=== PATIENT | female | born 1935 | race Caucasian/White ===

== ENCOUNTER 2018-03-31 20:18 | Inpatient (IN) | payer MEDICARE ==
--- NOTE | 2018-03-31 20:34 | ED ---
General Adult HPI - General Chief complaint: Altered Mental Status Stated complaint: Confusion Time Seen by Provider: 03/31/18 20:20 Source: patient, EMS, RN notes reviewed Mode of arrival: EMS Limitations: altered mental status - History of Present Illness Initial comments: Patient is a pleasant 82-year-old female presenting to the emergency department with change in mental status. EMS reports that family stated patient had what appeared to be seizure-like activity lasting a couple of minutes. Patient then has been altered. EMS states when they arrived patient was very altered and only could speak around 1 word. Patient at this time is alert and able to answer some simple questions. Patient denies any complaints. No reported seizure history. - Related Data Home Medications Medication Instructions Recorded Confirmed Albuterol Inhaler [Ventolin Hfa 1 - 2 puff INHALATION RT-Q6H PRN 03/31/18 Inhaler] Allopurinol [Zyloprim] 300 mg PO DAILY 03/31/18 03/31/18 Atorvastatin [Lipitor] 80 mg PO HS 03/31/18 03/31/18 Blood Pressure Med(Unknown) 1 tab PO DIRECTED 03/31/18 03/31/18 Furosemide [Lasix] 40 mg PO BID 03/31/18 03/31/18 HYDROcodone/APAP 5-325MG [[place] 1 tab PO BID PRN 03/31/18 03/31/18 5-325] Insulin Aspart Protam & Aspart 40 unit SQ QAM 03/31/18 03/31/18 [NovoLOG MIX 70-30 Flexpen] Insulin Aspart Protam & Aspart 60 unit SQ HS 03/31/18 03/31/18 [NovoLOG MIX 70-30 Flexpen] Nitroglycerin Sl Tabs [Nitrostat] 0.4 mg SUBLINGUAL Q5M PRN 03/31/18 03/31/18 Omeprazole [PriLOSEC] 20 mg PO DAILY 03/31/18 03/31/18 Allergies Allergy/AdvReac Type Severity Reaction Status Date / Time No Known Allergies Allergy Verified 03/31/18 20:58 Review of Systems ROS Statement: Those systems with pertinent positive or pertinent negative responses have been documented in the HPI. ROS Other: All systems not noted in ROS Statement are negative. Constitutional: Denies: fever Eyes: Denies: eye pain ENT: Denies: ear pain Respiratory: Denies: cough, dyspnea Cardiovascular: Denies: chest pain Endocrine: Denies: fatigue Gastrointestinal: Denies: abdominal pain Genitourinary: Denies: dysuria Musculoskeletal: Denies: back pain Skin: Denies: rash Neurological: Denies: headache, weakness Past Medical History Past Medical History: Unable to Obtain History of Any Multi-Drug Resistant Organisms: None Reported Past Surgical History: Unable to Obtain Past Psychological History: No Psychological Hx Reported Smoking Status: Never smoker Past Alcohol Use History: None Reported Past Drug Use History: None Reported General Exam Limitations: no limitations General appearance: alert, in no apparent distress Head exam: Present: atraumatic Eye exam: Present: normal appearance, PERRL, EOMI ENT exam: Present: normal oropharynx Neck exam: Present: normal inspection. Absent: meningismus Respiratory exam: Present: normal lung sounds bilaterally Cardiovascular Exam: Present: regular rate, normal rhythm GI/Abdominal exam: Present: soft. Absent: tenderness Extremities exam: Present: normal inspection Neurological exam: Present: alert, altered, CN II-XII intact Expanded Neurological exam: Present: protecting the airway Patient oriented to: Present: person, place. Absent: time Cranial nerves: EOM's Intact: Normal, Facial Sensation: Normal Sensory exam: Upper Extremity Light Touch: Normal, Lower Extremity Light Touch: Normal Motor strength exam: RUE: 4, LUE: 4, RLE: 3, LLE: 3 Eye Response: (4) open spontaneously Motor Response: (6) obeys commands Verbal Response: (4) confused conversation Psychiatric exam: Present: normal affect, normal mood Skin exam: Present: normal color Course Vital Signs 03/31/18 03/31/18 03/31/18 20:20 21:26 21:42 Temperature 100 F H Pulse Rate 76 73 78 Respiratory 20 18 18 Rate Blood Pressure 143/82 114/74 83/40 O2 Sat by Pulse 100 97 97 Oximetry 03/31/18 22:00 Temperature Pulse Rate 77 Respiratory 20 Rate Blood Pressure 123/58 O2 Sat by Pulse 97 Oximetry - Reevaluation(s) Reevaluation #1: 03/31/18 22:13 There is concern for urinary tract infection however patient does not meet sepsis criteria. EKG Findings - EKG Comments: EKG Findings:: Normal sinus rhythm 79. MN 160. QRS 78. QT 348. QTC 399. Left axis. Low QRS voltage. Poor R-wave progression. No acute ST change. Medical Decision Making - Medical Decision Making Patient reevaluated and resting comfortably in bed. Patient is alert and appropriate. Family states patient is at baseline. Patient and family updated on results and plan. Case was discussed in detail with Dr. Woody, who will admit his patient, no consults at this time. - Lab Data Result diagrams: 03/31/18 20:30 03/31/18 20:30 Lab Results 03/31/18 03/31/18 03/31/18 Range/Units 20:30 20:30 20:30 WBC 7.8 (3.8-10.6) k/uL RBC 4.51 (3.80-5.40) m/uL Hgb 12.8 (11.4-16.0) gm/dL Hct 40.1 (34.0-46.0) % MCV 89.0 (80.0-100.0) fL MCH 28.3 (25.0-35.0) pg MCHC 31.8 (31.0-37.0) g/dL RDW 14.7 (11.5-15.5) % Plt Count 155 (150-450) k/uL Neutrophils % 70 % Lymphocytes % 18 % Monocytes % 6 % Eosinophils % 4 % Basophils % 1 % Neutrophils # 5.5 (1.3-7.7) k/uL Lymphocytes # 1.4 (1.0-4.8) k/uL Monocytes # 0.5 (0-1.0) k/uL Eosinophils # 0.3 (0-0.7) k/uL Basophils # 0.0 (0-0.2) k/uL PT (9.0-12.0) sec INR (<1.2) APTT (22.0-30.0) sec Sodium 137 (137-145) mmol/L Potassium 4.0 (3.5-5.1) mmol/L Chloride 103 (98-107) mmol/L Carbon Dioxide 27 (22-30) mmol/L Anion Gap 7 mmol/L BUN 18 H (7-17) mg/dL Creatinine 0.75 (0.52-1.04) mg/dL Est GFR (CKD-EPI)AfAm 85 (>60 ml/min/1.73 sqM) Est GFR (CKD-EPI)NonAf 74 (>60 ml/min/1.73 sqM) Glucose 56 L (74-99) mg/dL POC Glucose (mg/dL) (75-99) mg/dL POC Glu Hospice Patient Care Secretary ID Calcium 8.2 L (8.4-10.2) mg/dL Magnesium 1.8 (1.6-2.3) mg/dL Total Bilirubin 0.5 (0.2-1.3) mg/dL AST 23 (14-36) U/L ALT 25 (9-52) U/L Alkaline Phosphatase 77 (38-126) U/L Total Creatine Kinase 61 (30-135) U/L CK-MB (CK-2) 1.0 (0.0-2.4) ng/mL CK-MB (CK-2) Rel Index 1.6 Troponin I <0.012 (0.000-0.034) ng/mL Total Protein 5.1 L (6.3-8.2) g/dL Albumin 2.7 L (3.5-5.0) g/dL Urine Color Urine Appearance (Clear) Urine pH (5.0-8.0) Ur Specific [place] (1.001-1.035) Urine Protein (Negative) Urine Glucose (UA) (Negative) Urine Ketones (Negative) Urine Blood (Negative) Urine Nitrite (Negative) Urine Bilirubin (Negative) Urine Urobilinogen (<2.0) mg/dL Ur Leukocyte Esterase (Negative) Urine RBC (0-5) /hpf Urine WBC (0-5) /hpf Urine WBC Clumps (None) /hpf Ur Squamous Epith Cells (0-4) /hpf Urine Bacteria (None) /hpf Urine Mucus (None) /hpf Urine Yeast (Budding) (None) /hpf Urine Opiates Screen (NotDetected) Ur Oxycodone Screen (NotDetected) Urine Methadone Screen (NotDetected) Ur Propoxyphene Screen (NotDetected) Ur Barbiturates Screen (NotDetected) U Tricyclic Antidepress (NotDetected) Ur Phencyclidine Scrn (NotDetected) Ur Amphetamines Screen (NotDetected) U Methamphetamines Scrn (NotDetected) U Benzodiazepines Scrn (NotDetected) Urine Cocaine Screen (NotDetected) U Marijuana (THC) Screen (NotDetected) 03/31/18 03/31/18 03/31/18 Range/Units 20:30 20:39 21:11 WBC (3.8-10.6) k/uL RBC (3.80-5.40) m/uL Hgb (11.4-16.0) gm/dL Hct (34.0-46.0) % MCV (80.0-100.0) fL MCH (25.0-35.0) pg MCHC (31.0-37.0) g/dL RDW (11.5-15.5) % Plt Count (150-450) k/uL Neutrophils % % Lymphocytes % % Monocytes % % Eosinophils % % Basophils % % Neutrophils # (1.3-7.7) k/uL Lymphocytes # (1.0-4.8) k/uL Monocytes # (0-1.0) k/uL Eosinophils # (0-0.7) k/uL Basophils # (0-0.2) k/uL PT 10.7 (9.0-12.0) sec INR 1.1 (<1.2) APTT 36.5 H (22.0-30.0) sec Sodium (137-145) mmol/L Potassium (3.5-5.1) mmol/L Chloride (98-107) mmol/L Carbon Dioxide (22-30) mmol/L Anion Gap mmol/L BUN (7-17) mg/dL Creatinine (0.52-1.04) mg/dL Est GFR (CKD-EPI)AfAm (>60 ml/min/1.73 sqM) Est GFR (CKD-EPI)NonAf (>60 ml/min/1.73 sqM) Glucose (74-99) mg/dL POC Glucose (mg/dL) 54 L (75-99) mg/dL POC Glu Hospice Patient Care Secretary ID Malu Garcia Calcium (8.4-10.2) mg/dL Magnesium (1.6-2.3) mg/dL Total Bilirubin (0.2-1.3) mg/dL AST (14-36) U/L ALT (9-52) U/L Alkaline Phosphatase (38-126) U/L Total Creatine Kinase (30-135) U/L CK-MB (CK-2) (0.0-2.4) ng/mL CK-MB (CK-2) Rel Index Troponin I (0.000-0.034) ng/mL Total Protein (6.3-8.2) g/dL Albumin (3.5-5.0) g/dL Urine Color Yellow Urine Appearance Cloudy H (Clear) Urine pH 5.5 (5.0-8.0) Ur Specific [place] 1.009 (1.001-1.035) Urine Protein Trace H (Negative) Urine Glucose (UA) Negative (Negative) Urine Ketones Negative (Negative) Urine Blood Negative (Negative) Urine Nitrite Positive H (Negative) Urine Bilirubin Negative (Negative) Urine Urobilinogen <2.0 (<2.0) mg/dL Ur Leukocyte Esterase Large H (Negative) Urine RBC 2 (0-5) /hpf Urine WBC 24 H (0-5) /hpf Urine WBC Clumps Many H (None) /hpf Ur Squamous Epith Cells <1 (0-4) /hpf Urine Bacteria Moderate H (None) /hpf Urine Mucus Rare H (None) /hpf Urine Yeast (Budding) Occasional H (None) /hpf Urine Opiates Screen Not Detected (NotDetected) Ur Oxycodone Screen Not Detected (NotDetected) Urine Methadone Screen Not Detected (NotDetected) Ur Propoxyphene Screen Not Detected (NotDetected) Ur Barbiturates Screen Not Detected (NotDetected) U Tricyclic Antidepress Not Detected (NotDetected) Ur Phencyclidine Scrn Not Detected (NotDetected) Ur Amphetamines Screen Not Detected (NotDetected) U Methamphetamines Scrn Not Detected (NotDetected) U Benzodiazepines Scrn Not Detected (NotDetected) Urine Cocaine Screen Not Detected (NotDetected) U Marijuana (THC) Screen Not Detected (NotDetected) 03/31/18 Range/Units 21:56 WBC (3.8-10.6) k/uL RBC (3.80-5.40) m/uL Hgb (11.4-16.0) gm/dL Hct (34.0-46.0) % MCV (80.0-100.0) fL MCH (25.0-35.0) pg MCHC (31.0-37.0) g/dL RDW (11.5-15.5) % Plt Count (150-450) k/uL Neutrophils % % Lymphocytes % % Monocytes % % Eosinophils % % Basophils % % Neutrophils # (1.3-7.7) k/uL Lymphocytes # (1.0-4.8) k/uL Monocytes # (0-1.0) k/uL Eosinophils # (0-0.7) k/uL Basophils # (0-0.2) k/uL PT (9.0-12.0) sec INR (<1.2) APTT (22.0-30.0) sec Sodium (137-145) mmol/L Potassium (3.5-5.1) mmol/L Chloride (98-107) mmol/L Carbon Dioxide (22-30) mmol/L Anion Gap mmol/L BUN (7-17) mg/dL Creatinine (0.52-1.04) mg/dL Est GFR (CKD-EPI)AfAm (>60 ml/min/1.73 sqM) Est GFR (CKD-EPI)NonAf (>60 ml/min/1.73 sqM) Glucose (74-99) mg/dL POC Glucose (mg/dL) 92 (75-99) mg/dL POC Glu Hospice Patient Care Secretary ID Ronaldo Hammond Calcium (8.4-10.2) mg/dL Magnesium (1.6-2.3) mg/dL Total Bilirubin (0.2-1.3) mg/dL AST (14-36) U/L ALT (9-52) U/L Alkaline Phosphatase (38-126) U/L Total Creatine Kinase (30-135) U/L CK-MB (CK-2) (0.0-2.4) ng/mL CK-MB (CK-2) Rel Index Troponin I (0.000-0.034) ng/mL Total Protein (6.3-8.2) g/dL Albumin (3.5-5.0) g/dL Urine Color Urine Appearance (Clear) Urine pH (5.0-8.0) Ur Specific [place] (1.001-1.035) Urine Protein (Negative) Urine Glucose (UA) (Negative) Urine Ketones (Negative) Urine Blood (Negative) Urine Nitrite (Negative) Urine Bilirubin (Negative) Urine Urobilinogen (<2.0) mg/dL Ur Leukocyte Esterase (Negative) Urine RBC (0-5) /hpf Urine WBC (0-5) /hpf Urine WBC Clumps (None) /hpf Ur Squamous Epith Cells (0-4) /hpf Urine Bacteria (None) /hpf Urine Mucus (None) /hpf Urine Yeast (Budding) (None) /hpf Urine Opiates Screen (NotDetected) Ur Oxycodone Screen (NotDetected) Urine Methadone Screen (NotDetected) Ur Propoxyphene Screen (NotDetected) Ur Barbiturates Screen (NotDetected) U Tricyclic Antidepress (NotDetected) Ur Phencyclidine Scrn (NotDetected) Ur Amphetamines Screen (NotDetected) U Methamphetamines Scrn (NotDetected) U Benzodiazepines Scrn (NotDetected) Urine Cocaine Screen (NotDetected) U Marijuana (THC) Screen (NotDetected) - Radiology Data Radiology results: report reviewed (Computed tomography scan of the brain shows probable meningioma. No acute intercranial abnormality.), image reviewed ( Chest x-ray shows no acute abnormality.) Disposition Clinical Impression: Altered mental status, Hypoglycemia, Urinary tract infection Disposition: ADMITTED IP TO THIS HOSP Is patient prescribed a controlled substance at d/c from ED?: No Referrals: Dieter Woody MD [Primary Care Provider] - 1-2 days Decision Time: 22:14
[2018-03-31 20:40] LABS: Glucose,Whole Blood 54 mg/dL (75-99)
[2018-03-31] MEDS: DEXTROSE 50%-WATER 50 ML SYRINGE IVP STA (20:44)
[2018-03-31 20:56] LABS: Albumin 2.7 g/dL (3.5-5.0); Calcium 8.2 mg/dL (8.4-10.2); Magnesium 1.8 mg/dL (1.6-2.3); Total Bilirubin 0.5 mg/dL (0.2-1.3); Total Protein 5.1 g/dL (6.3-8.2)
[2018-03-31 20:58] LABS: Basophils % (A) 1 %; Eosinophils # (A) 0.3 k/uL (0-0.7); Eosinophils % (A) 4 %; HCT 40.1 % (34.0-46.0); HGB 12.8 gm/dL (11.4-16.0); Lymphocytes # (A) 1.4 k/uL (1.0-4.8); Lymphocytes % (A) 18 %; MCH 28.3 pg (25.0-35.0); MCHC 31.8 g/dL (31.0-37.0); Mean Platelet Volume 7.8; Monocytes # (A) 0.5 k/uL (0-1.0); Monocytes % (A) 6 %; Neutrophils # (A) 5.5 k/uL (1.3-7.7); Neutrophils % (A) 70 %; Platelet Count 155 k/uL (150-450); RBC 4.51 m/uL (3.80-5.40); RDW 14.7 % (11.5-15.5); WBC 7.8 k/uL (3.8-10.6)
[2018-03-31 21:01] LABS: Creatine Kinase 61 U/L (30-135)
[2018-03-31 21:09] LABS: INR 1.1 (<1.2); Partial Thromboplastin Time 36.5 sec (22.0-30.0); Prothrombin Time 10.7 sec (9.0-12.0)
--- NOTE | 2018-03-31 21:10 | CT ---
EXAMINATION TYPE: CT brain wo con DATE OF EXAM: 03/31/2018 COMPARISON: None HISTORY: Confusion CT DLP: 1053 mGycm Automated exposure control for dose reduction was used. FINDINGS: There is cerebral cortical atrophy. There is no mass effect nor midline shift. There is a 15 x 8 mm i ntermediate to high density mass at the left parietal convexity consistent with meningioma. The linda rium is intact. IMPRESSION: LEFT PARIETAL CONVEXITY EXTRA-AXIAL MASS CONSISTENT WITH MENINGIOMA. CEREBRAL ATROPHY. NO ACUTE INTRA CRANIAL ABNORMALITY.
[2018-03-31 21:14] LABS: Troponin I <0.012 ng/mL (0.000-0.034)
[2018-03-31 21:33] LABS: Appearance,Urine Cloudy (Clear); Bacteria,Urine Moderate /hpf; Bilirubin,Urine Negative (Negative); Blood,Urine Negative (Negative); Budding Yeast,Urine Occasional /hpf; Color,Urine Yellow; Glucose,Urine (UA) Negative (Negative); Ketones,Urine Negative (Negative); Leukocyte Esterase,Urine Large (Negative); Mucus,Urine Rare /hpf; Nitrite,Urine Positive (Negative); PH, Urine 5.5 (5.0-8.0); Protein,Urine Trace (Negative); RBC,Urine 2 /hpf (0-5); Specific Gravity,Urine 1.009 (1.001-1.035); Squamous Epithelial Cell,Urine <1 /hpf (0-4); Urobilinogen,Urine <2.0 mg/dL (<2.0); WBC,Urine 24 /hpf (0-5)
[2018-03-31 21:35] LABS: Amphetamine Screen,Urine Not Detected (NotDetected); Barbiturate Screen,Urine Not Detected (NotDetected); Benzodiazepines Screen,Urine Not Detected (NotDetected); Cocaine Screen,Urine Not Detected (NotDetected); Methadone Screen, Urine Not Detected (NotDetected); Opiate Screen,Urine Not Detected (NotDetected); Oxycodone Screen, Urine Not Detected (NotDetected); Phencyclidine Screen,Urine Not Detected (NotDetected); Tricyclic Antidepressant,Urine Not Detected (NotDetected); Urn Cannabinoid Scrn Not Detected (NotDetected)
--- NOTE | 2018-03-31 21:43 | XR ---
EXAMINATION TYPE: XR chest 2V DATE OF EXAM: 03/31/2018 COMPARISON: NONE HISTORY: Altered mental status TECHNIQUE: Frontal and lateral views of the chest are obtained. FINDINGS: There is no heart failure nor confluent pneumonic infiltrate. Costophrenic angles are josey r. There is some spurring in the thoracic spine. There are chest leads. IMPRESSION: No active cardiopulmonary disease. Normal heart.
[2018-03-31 22:00] LABS: Glucose,Whole Blood 92 mg/dL (75-99)
[2018-03-31] MEDS ORDERED: NALOXONE 0.4 MG/ML 1 ML VIAL IV PRN (22:16)
[2018-04-01 00:11] LABS: Glucose,Whole Blood 59 mg/dL (75-99)
[2018-04-01] MEDS: DEXTROSE 50%-WATER 50 ML SYRINGE IVP STA (00:27)
[2018-04-01] MEDS: DEXTROSE 10% IN WATER 500 ML IV SCH ×3 (00:30→17:41)
[2018-04-01 00:39] LABS: Glucose,Whole Blood 190 mg/dL (75-99)
[2018-04-01 00:55] LABS: Glucose,Whole Blood 148 mg/dL (75-99)
[2018-04-01] MEDS ORDERED: NALOXONE 0.4 MG/ML 1 ML VIAL ONE (01:07)
[2018-04-01 01:08] LABS: Albumin 2.8 g/dL (3.5-5.0); Calcium 8.8 mg/dL (8.4-10.2); Potassium 4.3 mmol/L (3.5-5.1); Total Bilirubin 0.5 mg/dL (0.2-1.3); Total Protein 5.2 g/dL (6.3-8.2)
[2018-04-01 01:20] LABS: Creatine Kinase 119 U/L (30-135)
[2018-04-01 01:32] LABS: Creatine Kinase MB 2.4 ng/mL (0.0-2.4); Troponin I <0.012 ng/mL (0.000-0.034)
[2018-04-01 01:57] LABS: Glucose,Whole Blood 111 mg/dL (75-99)
[2018-04-01] MEDS: SODIUM CHLORIDE 0.9% 1,000 ML IV SCH ×2 (03:09→21:12)
[2018-04-01 03:39] LABS: Glucose,Whole Blood 114 mg/dL (75-99)
[2018-04-01 05:20] LABS: Glucose,Whole Blood 98 mg/dL (75-99)
[2018-04-01 07:30] LABS: Glucose,Whole Blood 85 mg/dL (75-99)
[2018-04-01 09:36] LABS: Glucose,Whole Blood 107 mg/dL (75-99)
[2018-04-01 10:04] LABS: Creatine Kinase MB 2.4 ng/mL (0.0-2.4); Troponin I 0.014 ng/mL (0.000-0.034)
[2018-04-01 11:44] LABS: Glucose,Whole Blood 114 mg/dL (75-99)
[2018-04-01] MEDS ORDERED: NITROGLYCERIN SL TABS 0.4 MG TAB SUBLINGUAL PRN (12:32)
[2018-04-01 12:45] LABS: Hemoglobin A1C 11.9 % (4.0-6.0)
[2018-04-01] MEDS: FUROSEMIDE 40 MG TAB PO SCH (15:17)
[2018-04-01 17:14] LABS: Glucose,Whole Blood 187 mg/dL (75-99)
[2018-04-01 20:58] LABS: Glucose,Whole Blood 227 mg/dL (75-99)
[2018-04-01] MEDS ORDERED: INSULN ASP PRT/INSULIN ASPART 100 UNIT/ML 10 ML VIAL SQ SCH (21:00)
[2018-04-02] MEDS: DEXTROSE 10% IN WATER 500 ML IV SCH ×2 (02:31→11:08)
[2018-04-02 02:46] LABS: Glucose,Whole Blood 174 mg/dL (75-99)
[2018-04-02 07:05] LABS: Glucose,Whole Blood 138 mg/dL (75-99)
[2018-04-02] MEDS ORDERED: INSULN ASP PRT/INSULIN ASPART 100 UNIT/ML 10 ML VIAL SQ SCH (07:30)
[2018-04-02] MEDS: FUROSEMIDE 40 MG TAB PO SCH ×2 (09:11→17:25)
[2018-04-02] MEDS: PANTOPRAZOLE 40 MG TABLET PO SCH (09:11)
[2018-04-02 09:52] VITALS: BMI 36.1
[2018-04-02 11:33] LABS: Glucose,Whole Blood 135 mg/dL (75-99)
[2018-04-02 17:07] LABS: Glucose,Whole Blood 103 mg/dL (75-99)
[2018-04-02] MEDS: INSULIN ASPART 100 UNIT/ML 1 ML 10 ML VIAL SQ SCH ×2 (17:25→20:56)
[2018-04-02] MEDS: CEPHALEXIN 500 MG CAP PO SCH ×2 (18:18→21:20)
[2018-04-02 20:44] LABS: Glucose,Whole Blood 84 mg/dL (75-99)
[2018-04-02] MEDS: SODIUM CHLORIDE 0.9% 1,000 ML IV SCH (21:01)
[2018-04-03 01:32] LABS: Glucose,Whole Blood 154 mg/dL (75-99)
[2018-04-03 07:10] LABS: Glucose,Whole Blood 109 mg/dL (75-99)
[2018-04-03] MEDS: INSULIN ASPART 100 UNIT/ML 1 ML 10 ML VIAL SQ SCH ×4 (08:21→21:42)
[2018-04-03] MEDS: PANTOPRAZOLE 40 MG TABLET PO SCH (08:23)
[2018-04-03] MEDS: CEPHALEXIN 500 MG CAP PO SCH ×4 (08:23→21:41)
[2018-04-03] MEDS: FUROSEMIDE 40 MG TAB PO SCH ×2 (08:23→16:50)
[2018-04-03 11:22] LABS: Glucose,Whole Blood 160 mg/dL (75-99)
[2018-04-03 17:10] LABS: Glucose,Whole Blood 181 mg/dL (75-99)
[2018-04-03 20:40] LABS: Glucose,Whole Blood 174 mg/dL (75-99)
[2018-04-03] MEDS: ARTIFICIAL TEARS-HYPROMELLOSE DROPS 15 ML BTL BOTH EYES PRN (21:41)
[2018-04-03] MEDS: SODIUM CHLORIDE 0.9% 1,000 ML IV SCH (23:48)
[2018-04-04 02:38] LABS: Glucose,Whole Blood 234 mg/dL (75-99)
[2018-04-04 06:32] VITALS: RESP 20; TEMP 97.7
[2018-04-04 07:03] LABS: Glucose,Whole Blood 233 mg/dL (75-99)
[2018-04-04] MEDS: CEPHALEXIN 500 MG CAP PO SCH ×2 (08:31→12:14)
[2018-04-04] MEDS: INSULIN ASPART 100 UNIT/ML 1 ML 10 ML VIAL SQ SCH ×2 (08:32→12:14)
[2018-04-04] MEDS: ARTIFICIAL TEARS-HYPROMELLOSE DROPS 15 ML BTL BOTH EYES PRN (08:32)
[2018-04-04] MEDS: PANTOPRAZOLE 40 MG TABLET PO SCH (08:32)
[2018-04-04] MEDS: FUROSEMIDE 40 MG TAB PO SCH (08:32)
[2018-04-04 12:19] LABS: Glucose,Whole Blood 235 mg/dL (75-99)
[2018-04-04 15:12] VITALS: BP 130/55; PULSE 78
--- NOTE | 2018-04-04 23:56 | DS ---
DISCHARGE SUMMARY CHIEF COMPLAINT: Altered mental status. HISTORY OF PRESENT ILLNESS AND PHYSICAL EXAM: Details of this lady's history and physical can be found in the initial workup. LABORATORY STUDIES: While she was in a hospital, she had laboratory studies, details which can be found laboratory section of her chart. COURSE IN HOSPITAL: After admission, she was placed in bedrest, started on intravenous fluids and was treated largely for hypoglycemia. As she became more awake and alert and her sugar came up, her mental status improved and she did well. It was originally thought she would have to go to rehab, but the family decided to take her home on the . She will be seen in the office in several days. FINAL DIAGNOSES: 1. Mental status changes. 2. Hypoglycemia. 3. Uncontrolled diabetes mellitus. OPERATIONS: None. CONSULTATIONS: None. CONDITION: She is improved. BART / MAREK: [id number] /
--- NOTE | 2018-04-06 17:55 | PN ---
PROGRESS NOTE DATE OF SERVICE: 04/03/2018 CHIEF COMPLAINT: Altered mental status. HISTORY OF PRESENT ILLNESS: This lady is a little bit more awake and alert. It is thought that her issue was hypoglycemia. She is improved. She has no focal neurologic deficits, headache, chest pain, etc. She does have a urinary tract infection. PHYSICAL EXAMINATION: Head, ears, eyes, nose, mouth and throat are normal and unchanged. Chest is clear. Cardiac exam is normal. Abdomen is soft, nontender without masses. She is becoming more awake and alert, but she is still confused. IMPRESSION: 1. Mental status changes. 2. Hypoglycemia. 3. Urinary tract infection. PLAN: Continue with IV fluids and monitoring her neurologic status. MMODL / IJN: [id number] /
--- NOTE | 2018-04-06 18:04 | PN ---
PROGRESS NOTE DATE OF SERVICE: 04/02/2018 CHIEF COMPLAINT: Altered mental status and hypoglycemia. HISTORY OF PRESENT ILLNESS: This lady has been stable. Family is requesting that she go into a rehab center and arrangements are being made. PHYSICAL EXAM: Her chest is clear. Cardiac is normal. The abdomen is soft, nontender. She is awake and alert. IMPRESSION: 1. Hypoglycemia. 2. Diabetes. 3. Mental status changes. PLAN: Await rehab placement. MMODL / VINHN: [id number] /
== END 2018-04-04 16:46 | disposition home health service (06) | DRG 638 ==
LOC: SUPCPDRO 20:18 → EC 20:18 → 4MS4W 22:16 → OBSVTOIN 04-02 08:40 → 4MS4W 04-03 12:27
PROVIDERS: ADMIT Family Medicine; ATTEND Family Medicine
DX: E11.649 Type 2 diabetes mellitus with hypoglycemia without coma (principal); N39.0 Urinary tract infection, site not specified; E11.65 Type 2 diabetes mellitus with hyperglycemia; Z79.4 Long term (current) use of insulin; D32.0 Benign neoplasm of cerebral meninges; Z79.899 Other long term (current) drug therapy; Z66 Do not resuscitate
CPT/HCPCS: 36415; 70450; 71046; 80053; 80306; 81001; 82550; 82553; 83036; 83605; 83735; 84484; 85025; 85610; 85730; 87077; 87086; 87186; 93005; 94760; 96365; 96375; 99285